=== PATIENT | female | born 1990 | race African-American/Black ===

== ENCOUNTER 2021-01-13 01:00 | Inpatient (IN) | payer OTHER, SELFPAY ==
[2021-01-13] VITALS (10 sets, daily range): BP systolic 122–134; BP diastolic 75–86
[~2021-01-13] VITALS: Ht 165.1 cm; Wt 58.9 kg
[2021-01-13] MEDS ORDERED: PROPOFOL 1,000 MG/100 ML VIAL As Ordered ONE (01:03)
[2021-01-13] MEDS ORDERED: propofoL 1,000 MG in IV 1 EA IV SCH (01:15)
[2021-01-13] MEDS ORDERED: ETOMIDATE INJ 20MG/10ML VIAL IV ONE (01:15)
[2021-01-13] MEDS ORDERED: ROCURONIUM BROMIDE 50 MG/5 ML VIAL IV ONE (01:15)
[2021-01-13 01:34] LABS: BASO % 0.4 % (0.0-1.0); EOS # 0.1 10^3/uL (0.0-0.5); EOS % 1.1 % (0.0-3.0); HEMATOCRIT 43.3 % (36.0-47.0); HEMOGLOBIN 14.8 g/dl (12.0-15.5); LYMPH # 2.8 10^3/uL (1.5-5.0); LYMPH % 26.2 % (24.0-44.0); MEAN CORPUSCULAR HEMOGLOBIN 32.3 pg (27.0-33.0); MEAN CORPUSCULAR HGB CONC 34.2 g/dl (32.0-36.5); MEAN CORPUSCULAR VOLUME 94.5 fl (80.0-96.0); MONO # 0.5 10^3/uL (0.0-0.8); MONO % 4.9 % (2.0-8.0); NEUTROPHILS # 7.2 10^3/uL (1.5-8.5); NEUTROPHILS % 66.8 % (36.0-66.0); PLATELET COUNT, AUTOMATED 189 10^3/uL (150-450); RED BLOOD COUNT 4.58 10^6/uL (4.00-5.40); WHITE BLOOD COUNT 10.7 10^3/uL (4.0-10.0)
[2021-01-13 02:10] LABS: AMPHETAMINES LEVEL URINE NEGATIVE (NEGATIVE); BARBITURATES URINE NEGATIVE (NEGATIVE); BENZODIAZEPINES URINE NEGATIVE (NEGATIVE); CANNABINOIDS URINE POSITIVE (NEGATIVE); COCAINE METABOLITE URINE NEGATIVE (NEGATIVE); METHADONE URINE NEGATIVE (NEGATIVE); OPIATES URINE NEGATIVE (NEGATIVE); PHENCYCLIDINE URINE NEGATIVE (NEGATIVE)
[2021-01-13 02:18] LABS: ACETAMINOPHEN LEVEL < 2.0 UG/ML (10.0-30.0); BLOOD UREA NITROGEN 11 MG/DL (7-18); CALCIUM LEVEL 8.1 MG/DL (8.5-10.1); CARBON DIOXIDE LEVEL 20 MEQ/L (21-32); CHLORIDE LEVEL 112 MEQ/L (98-107); ETHYL ALCOHOL (ETHANOL) 0.402 % (0.000-0.010); GLOMERULAR FILTRATION RATE > 60.0 (>60); GLUCOSE, FASTING 123 MG/DL (70-100); POTASSIUM SERUM 3.2 MEQ/L (3.5-5.1); SALICYLATE LEVEL 2.6 MG/DL (5.0-30.0); SODIUM LEVEL 148 MEQ/L (136-145)
[2021-01-13] MEDS ORDERED: NS 1,000 ML IV ONE (02:25)
[2021-01-13 02:49] LABS: RSV AMPLIFICATION NEGATIVE (NEGATIVE)
[2021-01-13] MEDS ORDERED: POTASSIUM CHLORIDE 10% LIQ 20 MEQ/15 ML UDC PO ONE (02:55)
[2021-01-13] MEDS ORDERED: MULTIVITAMIN -ADULT INJECTION 10 ML, THIAMINE INJection 100 MG, FOLIC ACID 1 MG in NS 1... IV ONE (03:00)
[2021-01-13] MEDS: MIDAZOLAM INJ 2MG/2ML VIAL (J2250 PER 1MG) IV PRN ×4 (05:06→09:10)
[2021-01-13] MEDS: propofoL 1,000 MG in IV 1 EA IV SCH ×2 (05:09→08:21)
[2021-01-13 07:05] LABS: BASO % 0.2 % (0.0-1.0); EOS % 0.1 % (0.0-3.0); HEMATOCRIT 46.5 % (36.0-47.0); HEMOGLOBIN 15.7 g/dl (12.0-15.5); LYMPH # 2.2 10^3/uL (1.5-5.0); LYMPH % 14.5 % (24.0-44.0); MEAN CORPUSCULAR HEMOGLOBIN 31.8 pg (27.0-33.0); MEAN CORPUSCULAR HGB CONC 33.8 g/dl (32.0-36.5); MEAN CORPUSCULAR VOLUME 94.1 fl (80.0-96.0); MONO % 15.2 % (2.0-8.0); NEUTROPHILS # 10.3 10^3/uL (1.5-8.5); NEUTROPHILS % 69.4 % (36.0-66.0); PLATELET COUNT, AUTOMATED 183 10^3/uL (150-450); RED BLOOD COUNT 4.94 10^6/uL (4.00-5.40); WHITE BLOOD COUNT 14.9 10^3/uL (4.0-10.0)
[2021-01-13 07:31] LABS: ALBUMIN 3.8 GM/DL (3.2-5.2); ALT/SGPT 38 U/L (12-78); BILIRUBIN,DIRECT 0.1 MG/DL (0.0-0.2); BILIRUBIN,TOTAL 0.5 MG/DL (0.2-1.0); BLOOD UREA NITROGEN 8 MG/DL (7-18); CALCIUM LEVEL 8.3 MG/DL (8.5-10.1); CARBON DIOXIDE LEVEL 19 MEQ/L (21-32); CHLORIDE LEVEL 115 MEQ/L (98-107); CREATININE FOR GFR 0.72 MG/DL (0.55-1.30); GLOMERULAR FILTRATION RATE > 60.0 (>60); GLUCOSE, FASTING 89 MG/DL (70-100); MONO # 2.3 10^3/uL (0.0-0.8); POTASSIUM SERUM 3.7 MEQ/L (3.5-5.1); SODIUM LEVEL 147 MEQ/L (136-145); TOTAL PROTEIN 7.7 GM/DL (6.4-8.2)
[2021-01-13] MEDS: ENOXAPARIN 40MG/0.4ML SYRINGE (J1650 PER 10MG) SC SCH (08:22)
[2021-01-13] MEDS ORDERED: CHLORHEXIDINE GLUCONATE 0.12 % 15ML UDC (PERIDEX ORAL RINSE) MT SCH (09:00)
[2021-01-13] MEDS ORDERED: PANTOPRAZOLE 40MG VIAL (C9113 PER 1) IV SCH (09:00)
[2021-01-13] MEDS ORDERED: HOME MED LIST COMPLETE! XX SCH (10:00)
[2021-01-13] MEDS ORDERED: ACETAMINOPHEN TAB 650MG DOSE (2X325MG) PO PRN (12:40)
[2021-01-13] MEDS ORDERED: IBUPROFEN 400MG TAB PO PRN (12:40)
[2021-01-13] MEDS ORDERED: LORazepam 2 MG TAB PO PRN (12:40)
[2021-01-13] MEDS ORDERED: QC A650T3 PO (18:08)
[2021-01-13 18:20] LABS: URINE PREG TEST NEGATIVE (NEGATIVE)
[2021-01-13 20:34] LABS: HCG, SERUM QUALITATIVE NEGATIVE (NEGATIVE)
[2021-01-13 20:40] LABS: HCG, SERUM QUANTITATIVE < 1.0 MIU/ML
[2021-01-14] VITALS: BP 109/72
[2021-01-14 00:49] LABS: GC DNA AMPLIFICATION NEGATIVE (NEGATIVE)
[2021-01-14] MEDS: metroNIDAZOLE (FLAGYL) 500MG TABLET PO SCH ×2 (01:19→09:07)
[2021-01-14 04:00] VITALS: BP 116/79
[2021-01-14 04:45] LABS: BASO # 0.1 10^3/uL (0.0-0.2); BASO % 0.7 % (0.0-1.0); EOS # 0.1 10^3/uL (0.0-0.5); EOS % 1.5 % (0.0-3.0); HEMATOCRIT 40.1 % (36.0-47.0); LYMPH # 1.4 10^3/uL (1.5-5.0); LYMPH % 18.9 % (24.0-44.0); MEAN CORPUSCULAR HEMOGLOBIN 31.6 pg (27.0-33.0); MEAN CORPUSCULAR HGB CONC 34.2 g/dl (32.0-36.5); MEAN CORPUSCULAR VOLUME 92.6 fl (80.0-96.0); MONO # 0.9 10^3/uL (0.0-0.8); MONO % 11.4 % (2.0-8.0); NEUTROPHILS # 5.1 10^3/uL (1.5-8.5); NEUTROPHILS % 67.4 % (36.0-66.0); PLATELET COUNT, AUTOMATED 156 10^3/uL (150-450); RED BLOOD COUNT 4.33 10^6/uL (4.00-5.40); WHITE BLOOD COUNT 7.6 10^3/uL (4.0-10.0)
[2021-01-14 05:04] LABS: HEMOGLOBIN 13.7 g/dl (12.0-15.5)
[2021-01-14 05:06] LABS: BLOOD UREA NITROGEN 6 MG/DL (7-18); CALCIUM LEVEL 8.5 MG/DL (8.5-10.1); CARBON DIOXIDE LEVEL 26 MEQ/L (21-32); CHLORIDE LEVEL 107 MEQ/L (98-107); CREATININE FOR GFR 0.61 MG/DL (0.55-1.30); GLOMERULAR FILTRATION RATE > 60.0 (>60); GLUCOSE, FASTING 112 MG/DL (70-100); SODIUM LEVEL 142 MEQ/L (136-145)
[2021-01-14] MEDS ORDERED: POTASSIUM CHLORIDE 10MEQ SR TABLET PO ONE ×2 (05:40→07:00)
[2021-01-14 06:00] VITALS: BP 116/79
[2021-01-14] MEDS ORDERED: FLAG500T PO (07:14)
[2021-01-14] MEDS ORDERED: IBUP-1114 PO (07:15)
[2021-01-14 08:00] VITALS: BP 125/73
[2021-01-14] MEDS ORDERED: FOLIC ACID 1 MG TAB PO SCH (09:00)
[2021-01-14] MEDS ORDERED: THIAMINE 100 MG TAB PO SCH (09:00)
[2021-01-14] MEDS ORDERED: MULTIVITAMINS/MINERALS THERAP 1 TAB PO SCH (09:00)
[2021-01-14] MEDS: ENOXAPARIN 40MG/0.4ML SYRINGE (J1650 PER 10MG) SC SCH (09:07)
[2021-01-15 11:17] LABS: HEPATITIS B SURFACE ANTIGEN NEGATIVE (NEGATIVE)
[2021-01-15 11:42] LABS: HEPATITIS B CORE ANTIBODY IGM NEGATIVE (NEGATIVE); HEPATITIS C VIRUS ABY INDEX 0.1 INDEX (<0.8)
[2021-01-15 11:44] LABS: HIV 1&2 SCREEN CENTAUR NEGATIVE (NEGATIVE)
== END 2021-01-14 11:12 | disposition home or self-care (01) | DRG 82 ==
LOC: M ED 01:00 → EDBD 01:00 → M ED INP 02:32 → MERGE 02:32 → M ICU 04:33
PROVIDERS: ADMIT Internal Medicine Critical Care Medicine; ATTEND General Practice
PROC: 0BH17EZ Insertion of Endotracheal Airway into Trachea, Via Natural or Artificial Opening (ICD-10-PCS; principal; 2021-01-13)
PROC: 5A1935Z Respiratory Ventilation, Less than 24 Consecutive Hours (ICD-10-PCS; 2021-01-13)
DX: S00.12XA Contusion of left eyelid and periocular area, initial encounter (principal); J96.00 Acute respiratory failure, unspecified whether with hypoxia or hypercapnia; G92 Toxic encephalopathy; F10.120 Alcohol abuse with intoxication, uncomplicated; F19.10 Other psychoactive substance abuse, uncomplicated; A59.01 Trichomonal vulvovaginitis; W22.8XXA Striking against or struck by other objects, initial encounter; Y92.511 Restaurant or cafe as the place of occurrence of the external cause